=== PATIENT | male | born 1975 | race Caucasian/White ===

== ENCOUNTER 2019-05-19 14:34 | Emergency (ER) | payer BC ==
[2019-05-19 14:47] VITALS: TEMP 97.8; BMI 32.4
[2019-05-19] MEDS ORDERED: SODIUM CHLORIDE 1,000 ML IV STA (14:48)
--- NOTE | 2019-05-19 14:48 | PDOC ---
Rapid Medical Evaluation Time Seen by Provider: 05/19/19 14:46 Medical Evaluation: Allergies Allergy/AdvReac Type Severity Reaction Status Date / Time No Known Allergies Allergy Verified 05/19/19 14:46 Vital Signs Temp Pulse Resp BP Pulse Ox 97.8 F 67 18 119/86 99 05/19/19 14:38 05/19/19 14:38 05/19/19 14:38 05/19/19 14:38 05/19/19 14:38 05/19/19 14:46 CC: hyperglycemia at clinic PE: No focal findings Orders: hyperglycemia w/u Patient will proceed to ER for complete evaluation. Discharge Disposition - Diagnosis Hyperglycemia - Referrals - Patient Instructions - Post Discharge Activity
--- NOTE | 2019-05-19 15:16 | PDOC ---
History of Present Illness - General Chief Complaint: Blood Sugar Problem Stated Complaint: SENT BY PCP/HYPERGLYCEMIA Time Seen by Provider: 05/19/19 14:46 - History of Present Illness Initial Comments: 05/19/19 15:16 HPI: 44 y/o M with no pmh presenting BIBEMS from clinic for newly diagnosed DM to ruleout DKA. Glucose was 360s and patient received 8units insulin, 32ox water PO , and repeat after 4-5hrs was still 240s; since decreased wasnt sufficient, clinic wanted further eval. Patient states for the past 6 months he has had increased cramping of his left calf at rest and over the past month has been having it in the right calf too. He also reports LH since yesterday and increased urinary frequency from 2-3x/day to 6-10x/day over the past week. She denies fever, chills, RESENDIZ, chest pain, SOB, abd pain, n/v, dysuria, change in BM. PMHx: as noted above ROS: as noted SHx: Denies tobacco use; no alcohol use; no rec drugs Allergies: NKDA ROS: GENERAL/CONSTITUTIONAL: No fever or chills. No weakness. HEAD, EYES, EARS, NOSE AND THROAT: No change in vision. No ear pain or discharge. No sore throat. CARDIOVASCULAR: No chest pain or shortness of breath RESPIRATORY: No cough, wheezing, or hemoptysis. GASTROINTESTINAL: No nausea, vomiting, diarrhea or constipation. GENITOURINARY: +frequency,; No dysuria, or change in urination. MUSCULOSKELETAL: +muscle pain. SKIN: No rash NEUROLOGIC: No headache, vertigo, loss of consciousness, or change in strength/ sensation. ENDOCRINE: No increased thirst. No abnormal weight change HEMATOLOGIC/LYMPHATIC: No anemia, easy bleeding, or history of blood clots. ALLERGIC/IMMUNOLOGIC: No hives or skin allergy. PE: GENERAL: Awake, alert, and fully oriented, no acute distress HEAD: No signs of trauma, normocephalic, atraumatic EYES: EOMI, sclera anicteric, conjunctiva clear ENT: Auricles normal inspection, hearing grossly normal, nares patent, oropharynx clear without exudates. Moist mucosa NECK: Normal ROM, no lymphadenopathy LUNGS: No increased work of breathing, symmetrical chest rise, clear to auscultation bilaterally, no wheezes, crackles or rhonchi HEART: Regular rate, regular rhythm, normal S1 and S2, no murmur, peripheral pulses 2+ and equal bilaterally. ABDOMEN: Soft, nondistended, nontender, normoactive bowel sounds. No guarding, no rebound. No masses. No CVAT MUSCULOSKELETAL: Normal inspection, FROM NEUROLOGICAL: Cranial nerves II through XII grossly intact. Normal speech, normal gait, no focal sensorimotor deficits SKIN: Warm, Dry, normal turgor, no rashes or lesions noted Past History - Past Medical History Allergies/Adverse Reactions: Allergies Allergy/AdvReac Type Severity Reaction Status Date / Time No Known Allergies Allergy Verified 05/19/19 14:46 Home Medications: Ambulatory Orders NK [No Known Home Medication] 05/19/19 COPD: No Liver Disease: Yes (FATTY LIVER) - Immunization History Immunization Up to Date: Yes - Psycho Social/Smoking Cessation Hx Smoking History: Never smoked Have you smoked in the past 12 months: No Information on smoking cessation initiated: No Hx Alcohol Use: Yes (SOCIAL) Drug/Substance Use Hx: No *Physical Exam - Vital Signs Last Vital Signs Temp Pulse Resp BP Pulse Ox 97.8 F 67 18 119/86 99 05/19/19 14:38 05/19/19 14:38 05/19/19 14:38 05/19/19 14:38 05/19/19 14:38 ED Treatment Course - LABORATORY CBC & Chemistry Diagram: 05/19/19 15:40 05/19/19 15:25 Medical Decision Making - Medical Decision Making 05/19/19 18:40 44 y/o M with no pmh presenting BIBEMS from clinic for newly diagnosed DM to ruleout DKA. -cbc, cmp, phos, mg, beta hydroxy, ekg, ua, vbg -ivf 05/19/19 18:41 improved Glu ekg nsr, nl intervals, no efraín/d no anion gap normal vbg discussed with patient and will DC home to followup with pcp angie 1 week all questions asnwered at this time Discharge - Discharge Information Problems reviewed: Yes Clinical Impression/Diagnosis: Hyperglycemia Condition: Improved Disposition: HOME - Follow up/Referral Referrals: ON STAFF,NOT [Primary Care Provider] - - Patient Discharge Instructions Patient Printed Discharge Instructions: DI for Hyperglycemia -- Adult Additional Instructions: Additional Instructions: Please return to the emergency department with any new or worsening symptoms or concerns including fainting, seizures, chest pain. Please follow up with your primary care physician within 3-7 days for re- evaluation and blood sugar check. Please take all new medications prescribed. - Post Discharge Activity
[2019-05-19 16:10] LABS: BASO % 0.5 % (0-2.0); EOS % 3.7 % (0-4.5); HEMATOCRIT 44.7 % (35.4-49); HEMOGLOBIN 15.8 GM/dL (11.7-16.9); LYMPH % 37.1 % (8-40); MCHC 35.3 g/dl (32.0-35.9); MEAN CELL VOLUME 87.9 fl (80-96); MEAN PLT VOLUME 9.8 fl (7.5-11.1); MONO % 6.6 % (3.8-10.2); NEUT % 52.1 % (42.8-82.8); PLATELET COUNT 242 K/MM3 (134-434); RBC 5.09 M/mm3 (4.00-5.60); RDW 12.8 % (11.9-15.9); WHITE BLOOD COUNT 9.3 K/mm3 (4.0-10.0)
--- NOTE | 2019-05-19 16:10 | PDOC ---
Attending Attestation - Resident Resident Name: Linda Varghese - ED Attending Attestation I have performed the following: I have examined & evaluated the patient, The case was reviewed & discussed with the resident, I agree w/resident's findings & plan, Exceptions are as noted - HPI HPI: 05/19/19 16:06 44 M with no PMH presents to ED for elevated blood sugar. Pt states that he has been having leg cramps and increased urinary frequency for several weeks. He went to his PMD today and had bloodwork that showed his glucose was >300. Pt was given water and an insulin injection but only had a mild improvement in his sugar. Pt was subsequently sent to the ED for further eval. Pt has no complaints at this time. Pt's PMD prescribed metformin, Lantus, glucometer, and test strips prior to sending him to ED. - Physicial Exam PE: 05/19/19 16:09 "GENERAL: Awake, alert, and fully oriented, in no acute distress. HEAD: No signs of trauma EYES: PERRLA, EOMI, sclera anicteric, conjunctiva clear ENT: Auricles normal inspection, hearing grossly normal, nares patent, oropharynx clear without exudates. Moist mucosa NECK: Nontender, no stepoffs, Normal ROM, supple, no lymphadenopathy, JVD, or masses LUNGS: Breath sounds equal, clear to auscultation bilaterally. No wheezes, and no crackles HEART: Regular rate and rhythm, normal S1 and S2, no murmurs, rubs or gallops ABDOMEN: Soft, nontender, normoactive bowel sounds. No guarding, no rebound. No masses EXTREMITIES: Normal range of motion, no edema. No clubbing or cyanosis. No cords, erythema, or tenderness NEUROLOGICAL: Cranial nerves II through XII intact. 5/5 strength and sensation in all extremities, Normal speech, normal gait, normal cerebellar function SKIN: Warm, Dry, normal turgor, no rashes or lesions noted. - Medical Decision Making 05/19/19 16:10 44 M here for elevated fingerstick at PMD's office. Pt with no complaints. Will check lytes and r/o DKA. - labs - IVF Pt signed out to Dr. Pugh at 4:30 PM, pending labs and re-evaluation.
[2019-05-19 16:22] LABS: VENOUS PC02 48.4 mmHg (38-52); VENOUS PH 7.37 (7.31-7.41); VENOUS PO2 < 49 mmHg (28-48)
[2019-05-19 16:37] LABS: MAGNESIUM 2.2 mg/dL (1.8-2.4)
[2019-05-19 16:39] LABS: EPI CELLS 2.1 /HPF (0-5/HPF); HYALINE CASTS 10 /lpf (0-8); PH,URINE 5.5 (5.0-8.0); URINE APPEARANCE CLEAR; URINE BACTERIA 4.8 /hpf (NEGATIVE); URINE BILIRUBIN NEGATIVE (NEGATIVE); URINE COLOR DK YELLOW; URINE GLUCOSE (UA) 3+ (NEGATIVE); URINE KETONE 3+ (NEGATIVE); URINE LEUK ESTERASE NEGATIVE (NEGATIVE); URINE NITRITE NEGATIVE (NEGATIVE); URINE PROTEIN 1+ (NEGATIVE); URINE RBC 2 /hpf (0-4); URINE UROBILINOGEN 0.2 mg/dL (0.2-1.0); URINE WBC 2 /hpf (0-5)
[2019-05-19 16:45] LABS: ALBUMIN 4.3 g/dl (3.4-5.0); BILIRUBIN,TOTAL 0.7 mg/dL (0.2-1); BLOOD UREA NITROGEN 14.7 mg/dL (7-18); CALCIUM 9.2 mg/dL (8.5-10.1); CREATININE 0.7 mg/dL (0.55-1.3); POTASSIUM 3.9 mmol/L (3.5-5.1); TOT PROT 8.1 g/dl (6.4-8.2)
[2019-05-19 17:36] VITALS: BP 116/64; PULSE 64
--- NOTE | 2019-05-20 14:06 | EKG ---
Test Reason : Blood Pressure : / mmHG Vent. Rate : 065 BPM Atrial Rate : 065 BPM P-R Int : 172 ms QRS Dur : 090 ms QT Int : 392 ms P-R-T Axes : 023 015 005 degrees QTc Int : 407 ms NORMAL SINUS RHYTHM NORMAL ECG NO PREVIOUS ECGS AVAILABLE Confirmed by YOANA PAREDES MD ([id number]) on 05/20/2019 2:06:22 PM Referred By: Confirmed By:YOANA PAREDES MD
== END 2019-05-19 17:36 | disposition home or self-care (01) ==
LOC: JER 14:34
DX: E11.65 Type 2 diabetes mellitus with hyperglycemia (principal)
CPT/HCPCS: 36415; 80053; 81003; 82010; 82803; 82962; 83735; 84100; 85025; 93005; 93010; 99283-25; J7030